=== PATIENT | male | born 1990 | race Two or more races ===

== ENCOUNTER 2017-01-25 02:28 | Emergency (ER) | payer MEDICAID ==
[2017-01-25 02:35] VITALS: TEMP 97.5
--- NOTE | 2017-01-25 02:42 | EDPHY ---
H & P Stated Complaint: lip swelling/ throat pain since 2am HPI/ROS: HPI CHIEF COMPLAINT: Left lateral lower lip swelling HISTORY OF PRESENT ILLNESS: This patient very pleasant 26-year-old male, homeless, residing at the [facility] going through cocaine detox, history of IV drug use, presents emergency room with left lateral lower lip swelling angioedema. No trouble swallowing. No trouble breathing. No other areas of swelling or rash. States he went to bed around 11:00 p.m. and did not have this. He woke up around 1:00 a.m. or 2 hours ago to go to the bathroom and noticed the left lateral lower lip was swollen. Tingling. Itchy. No pain. He thinks something may have bit him. He has never had this before no history of anaphylaxis allergies or angioedema. Denies any new medications. Past Medical History: Denies medical history Past Surgical History: Denies surgical history Social History: Previous history of IV drug use, currently denies, smokes tobacco, smoked marijuana, crack cocaine use, homeless, currently recovering at the [facility]. Family History: Noncontributory ROS REVIEW OF SYSTEMS: A comprehensive 10 point review of systems is otherwise negative aside from elements mentioned in the history of present illness. Exam Constitutional triage nursing summary reviewed, vital signs reviewed, awake/ alert. Eyes normal conjunctivae and sclera, EOMI, PERRLA. HENT oropharynx: Left lateral lower lip is edematous, no significant induration, no fluctuance, it appears to be asymmetrical angioedema. Uvula midline. No signs of Virgilio's. No posterior pharynx swelling. No stridor. No urticaria rash. moist mucus membranes, no epistaxis, neck supple/ no meningismus, no raccoon eyes. Respiratory clear to auscultation bilaterally, normal breath sounds, no respiratory distress, no wheezing. Cardiovascular rate normal, regular rhythm, no murmur, no edema, distal pulses normal. Gastrointestinal soft, non-tender, no rebound, no guarding, normal bowel sounds, no distension, no pulsatile mass. Genitourinary no CVA tenderness. Musculoskeletal no midline vertebral tenderness, full range of motion, no calf swelling, no tenderness of extremities, no meningismus, good pulses, neurovascularly intact. Skin pink, warm, & dry, no rash, skin atraumatic. Neurologic awake, alert and oriented x 3, AAOx3, moves all 4 extremities equally, motor intact, sensory intact, CN II-XII intact, normal cerebellar, normal vision, normal speech. Psychiatric normal mood/affect. Heme/Lymph/Immune no lymphadenopathy. Differential Diagnosis: Includes but is not limited to in a particular order asymmetrical angioedema, allergic reaction, anaphylaxis, insect bite Medical Decision Making: Plan for this patient IV establishment, IV Decadron, Benadryl and Pepcid. Close monitoring for further worsening symptoms. He states stable I will place him on Benadryl Pepcid and prednisone outpatient. He does understand return emergency room if he develops worsening swelling. Trouble swallowing. Or breathing. Re-evaluation: 0508AM: Re-evaluation at this time patient resting comfortably. No further airway involvement no trouble breathing no trouble swallowing. Clear lungs. No further swelling of his lower lip. He has been observed here for multiple hours. I will allow her to go home. He has been given return precautions he understands return emergency room if he has any worsening symptoms questions concerns includes further lip swelling, trouble swallowing, trouble breathing. Source: Patient - Personal History Current Tetanus/Diphtheria Vaccine: Unsure Current Tetanus Diphtheria and Acellular Pertussis (TDAP): Unsure - Medical/Surgical History Hx Asthma: No Hx Chronic Respiratory Disease: No Hx Diabetes: No Hx Cardiac Disease: No Hx Renal Disease: No Hx Cirrhosis: No Hx Alcoholism: No Hx HIV/AIDS: No Hx Splenectomy or Spleen Trauma: No Other PMH: R tib/fib sx - Social History Smoking Status: Current some day smoker Constitutional: Initial Vital Signs Temperature (C) 36.4 C 01/25/17 02:32 Heart Rate 56 L 01/25/17 02:32 Respiratory Rate 18 01/25/17 02:32 Blood Pressure 141/80 H 01/25/17 02:32 O2 Sat (%) 97 01/25/17 02:32 O2 Delivery Mode Room Air Allergies/Adverse Reactions: No Known Allergies Allergy (Unverified 01/25/17 02:35) Home Medications: Medication Instructions Recorded Ranitidine HCl [Zantac] 150 mg PO DAILY #7 tablet 01/25/17 diphenhydrAMINE [Benadryl 25 MG 25 mg PO BID #14 tab 01/25/17 (*)] predniSONE 60 mg PO DAILY #15 tab 01/25/17 Medical Decision Making - Data Points Medications Given: Discontinued Medications Dexamethasone (Decadron Injection) 10 mg IVP EDNOW ONE Stop: 01/25/17 03:04 Last Admin: 01/25/17 03:26 Dose: 10 mg Diphenhydramine HCl (Benadryl Injection) 50 mg IVP EDNOW ONE Stop: 01/25/17 03:04 Last Admin: 01/25/17 03:25 Dose: 50 mg Famotidine (Pepcid) 20 mg IVP EDNOW ONE Stop: 01/25/17 03:04 Last Admin: 01/25/17 03:30 Dose: 20 mg Sodium Chloride (Ns) 1,000 mls @ 0 mls/hr IV ONCE ONE PRN Reason: Wide Open Stop: 01/25/17 03:05 Last Admin: 01/25/17 03:25 Dose: 1,000 mls Departure - Departure Disposition: Home, Routine, Self-Care Clinical Impression: Angioedema Qualifiers: Encounter type: initial encounter Qualified Code(s): T78.3XXA - Angioneurotic edema, initial encounter Condition: Good Instructions: Angioedema (ED) Additional Instructions: 1. Return emergency room immediately if he develops worsening swelling trouble breathing or trouble swallowing. 2. Take your medications as prescribed. 3. You should eventually follow up with an ammonia still operator. Referrals: NONE *PRIMARY CARE P,. [Primary Care Provider] - As per Instructions Prescriptions: diphenhydrAMINE [Benadryl 25 MG (*)] 25 mg PO BID #14 tab predniSONE 60 mg PO DAILY #15 tab Ranitidine HCl [Zantac] 150 mg PO DAILY #7 tablet
[2017-01-25] MEDS ORDERED: FAMOTIDINE 20 MG/2 ML SDV IVP ONE (03:03)
[2017-01-25] MEDS ORDERED: DEXAMETHASONE 10 MG/ML VIAL IVP ONE (03:03)
[2017-01-25] MEDS ORDERED: NS 1,000 ML IV ONE (03:04)
[2017-01-25 05:30] VITALS: BP 127/78; PULSE 68; RESP 16; O2SAT 95
== END 2017-01-25 05:29 | disposition home or self-care (01) ==
DX: T78.3XXA Angioneurotic edema, initial encounter (principal); F17.200 Nicotine dependence, unspecified, uncomplicated
CPT/HCPCS: 96374; J1100; J1200